=== PATIENT | female | born 1965 | race Two or more races ===

== ENCOUNTER → 2020-11-14 | Day surgery (SDC) | payer OTHER | END | disposition home or self-care (01) | LOC: JRADUS-SUR 08:09 | PROVIDERS: ATTEND Internal Medicine | PROC: 07D63ZX Extraction of Left Axillary Lymphatic, Percutaneous Approach, Diagnostic (ICD-10-PCS; principal; 2020-11-14) | PROC: 07D53ZX Extraction of Right Axillary Lymphatic, Percutaneous Approach, Diagnostic (ICD-10-PCS; 2020-11-14) | DX: R59.0 Localized enlarged lymph nodes (principal) | CPT/HCPCS: 19083; 19084; 38505; 87899; 88305-TC; 88312-TC; 88342-TC ==